=== PATIENT | male | born 1945 | race Caucasian/White ===

== ENCOUNTER 2024-03-21 10:52 | Inpatient (IN) | payer MEDICARE, OTHER ==
[2024-03-21 11:43] LABS: #Basophils 0.03 10x3/uL (0.0-0.2); %Basophils 0.6 % (0.0-1.0); %Eosinophils 1.2 % (0.0-10.0); %Lymphocytes 14.2 % (21.0-51.0); %Monocytes 8.9 % (0.0-10.0); %Neutrophils 74.7 % (42.0-75.0); Hematocrit 44.6 % (42.0-52.0); Hemoglobin 14.6 g/dL (14.0-18.0); Mean Corpuscular HGB CONC 32.7 g/dL (32.0-36.0); Mean Corpuscular Hemoglobin 32.2 pg (27.0-31.0); Mean Corpuscular Volume 98.5 fL (78.0-98.0); Mean Platelet Volume 10.3 fL (7.4-10.4); Platelet Count 203 10x3/uL (130-400); RBC Distribution Width 13.2 % (11.5-14.5); Red Blood Cell (RBC) Count 4.53 mill/uL (4.70-6.10)
[2024-03-21 12:00] LABS: ALT (SGPT) 20 U/L (8-55); AST (SGOT) 18 U/L (5-34); Albumin 3.7 g/dL (3.4-4.8); Alkaline Phosphatase 71 U/L (40-110); Anion Gap 13 mmol/L (10-20); BUN (Urea Nitrogen) 15 mg/dL (8.4-25.7); Bilirubin, Total 0.6 mg/dL (0.2-1.2); Calc. Creatinine Clearance 0 mL/min (70-130); Calcium 9.3 mg/dL (7.8-10.44); Carbon Dioxide 27 mmol/L (23-31); Chloride 107 mmol/L (98-107); Estimated GFR 91; Globulin 2.4 g/dL (2.4-3.5); Glucose 132 mg/dL (83-110); Potassium 4.1 mmol/L (3.5-5.1); Protein, Total 6.1 g/dL (5.8-8.1); Sodium 143 mmol/L (136-145)
[2024-03-21 12:06] LABS: Troponin I Less than 0.010 ng/mL (< 0.028)
[2024-03-21] MEDS ORDERED: Electrolyte Replacement Protocol 1 EACH IVPB SCH (13:26)
[2024-03-21 13:44] VITALS: BMI 28.6
[2024-03-21] MEDS ORDERED: Iopamidol-370 76% 500 ML MDV (1 ML CHARGE) ONE (14:14)
[2024-03-21] MEDS: Lactated Ringer's 1,000 ML IV SCH (14:50)
[2024-03-21] MEDS ORDERED: Acetaminophen 325 MG TAB ONE (15:11)
[2024-03-21] MEDS: Acetaminophen 325 MG TAB PO PRN (15:13)
[2024-03-21] MEDS ORDERED: Nitroglycerin 50 MG/250 ML BOT 250 ML ONE (15:49)
[2024-03-21] MEDS: Nitroglycerin 100MG/250ML BOT IV PRN (15:59)
[2024-03-21] MEDS ORDERED: Metoprolol Tartrate 25 MG TAB ONE (17:22)
[2024-03-21] MEDS: Finasteride 5 MG TAB PO SCH (20:46)
[2024-03-21] MEDS: Pantoprazole DR 40 MG TAB PO SCH (20:46)
[2024-03-21] MEDS: Atorvastatin Calcium 10 MG TAB PO SCH (20:46)
[2024-03-21] MEDS: Sodium Chloride 0.65% Nasal 44 ML BOT EA NARE PRN (22:37)
[2024-03-21] MEDS: Ketorolac Tromethamine 30 MG (1 mL) VIAL IVP SCH (22:37)
[2024-03-22 03:52] LABS: #Basophils 0.04 10x3/uL (0.0-0.2); %Basophils 0.7 % (0.0-1.0); %Eosinophils 2.2 % (0.0-10.0); %Lymphocytes 22.8 % (21.0-51.0); %Monocytes 9.6 % (0.0-10.0); %Neutrophils 64.4 % (42.0-75.0); Hematocrit 43.9 % (42.0-52.0); Hemoglobin 14.3 g/dL (14.0-18.0); Mean Corpuscular HGB CONC 32.6 g/dL (32.0-36.0); Mean Corpuscular Hemoglobin 31.5 pg (27.0-31.0); Mean Corpuscular Volume 96.7 fL (78.0-98.0); Mean Platelet Volume 10.4 fL (7.4-10.4); Platelet Count 205 10x3/uL (130-400); Red Blood Cell (RBC) Count 4.54 mill/uL (4.70-6.10)
[2024-03-22] MEDS: Ketorolac Tromethamine 30 MG (1 mL) VIAL IVP SCH (03:57)
[2024-03-22 04:13] LABS: Anion Gap 11 mmol/L (10-20); BUN (Urea Nitrogen) 17 mg/dL (8.4-25.7); Calc. Creatinine Clearance 100 mL/min (70-130); Calcium 9.2 mg/dL (7.8-10.44); Carbon Dioxide 23 mmol/L (23-31); Cardiac Risk 2.3 (Less than 4.5); Chloride 112 mmol/L (98-107); Cholesterol 118 mg/dl (< 200 Desired); Estimated GFR 92; Glucose 99 mg/dL (83-110); HDL Cholesterol 52 mg/dL (>60 Neg Risk); LDL Cholesterol, Calculated 45 mg/dL; Potassium 3.7 mmol/L (3.5-5.1); Sodium 142 mmol/L (136-145); Triglycerides 104 mg/dL (Less than 150)
[2024-03-22] MEDS: NIFEdipine XL 30 MG ER.TAB PO SCH (09:57)
[2024-03-22] MEDS: Morphine 2 MG/ML VIAL SLOW IVP PRN (11:20)
[2024-03-22] MEDS: Aspirin Chewable 81 MG TAB PO SCH (16:42)
[2024-03-22] MEDS: Clopidogrel Bisulfate 75 MG TAB PO SCH (16:42)
[2024-03-22] MEDS: hydrALAZINE 20 MG/ML VIAL SLOW IVP PRN (17:50)
[2024-03-22] MEDS: Metoclopramide HCl 10 MG (2 mL) VIAL IVP PRN (18:01)
[2024-03-22] MEDS: Calcium Carbonate 500 MG ChewTAB PO PRN (20:18)
[2024-03-22] MEDS ORDERED: hydrOXYzine 25 MG TAB PO PRN (22:23)
[2024-03-22] MEDS: Lorazepam 2 MG/ML VIAL SLOW IVP SCH (22:48)
[2024-03-22] MEDS: Nitroglycerin 0.4 MG TAB (25 Tab Bottle) SL PRN (22:55)
[2024-03-23 04:26] LABS: #Basophils Less than 0.03 10x3/uL (0.0-0.2); #Eosinphils Less than 0.03 10x3/uL (0.0-0.7); %Basophils 0.1 % (0.0-1.0); %Eosinophils 0.1 % (0.0-10.0); %Lymphocytes 9.6 % (21.0-51.0); %Monocytes 5.4 % (0.0-10.0); %Neutrophils 84.3 % (42.0-75.0); Hematocrit 47.3 % (42.0-52.0); Hemoglobin 15.5 g/dL (14.0-18.0); Mean Corpuscular HGB CONC 32.8 g/dL (32.0-36.0); Mean Corpuscular Hemoglobin 31.3 pg (27.0-31.0); Mean Corpuscular Volume 95.4 fL (78.0-98.0); Mean Platelet Volume 10.5 fL (7.4-10.4); Platelet Count 241 10x3/uL (130-400); RBC Distribution Width 13.2 % (11.5-14.5); Red Blood Cell (RBC) Count 4.96 mill/uL (4.70-6.10)
[2024-03-23 04:41] LABS: ALT (SGPT) 19 U/L (8-55); AST (SGOT) 16 U/L (5-34); Albumin 3.8 g/dL (3.4-4.8); Alkaline Phosphatase 70 U/L (40-110); Anion Gap 12 mmol/L (10-20); BUN (Urea Nitrogen) 12 mg/dL (8.4-25.7); Bilirubin, Total 0.6 mg/dL (0.2-1.2); Calc. Creatinine Clearance 101 mL/min (70-130); Calcium 9.8 mg/dL (7.8-10.44); Carbon Dioxide 21 mmol/L (23-31); Chloride 109 mmol/L (98-107); Estimated GFR 92; Globulin 2.7 g/dL (2.4-3.5); Glucose 117 mg/dL (83-110); Protein, Total 6.5 g/dL (5.8-8.1); Sodium 138 mmol/L (136-145)
[2024-03-23] MEDS ORDERED: Regadenoson 0.4 MG/5 ML SYRINGE ONE (09:46)
[2024-03-23] MEDS: NIFEdipine XL 60 MG ER.TAB PO SCH (11:40)
[2024-03-23 12:36] VITALS: BP 138/80; TEMP 97.2
== END 2024-03-23 13:12 | disposition left against medical advice (07) | DRG 305 ==
LOC: ERS 10:52 → ERHOLD 12:55 → OBSVTOIN 13:19 → 2SW 20:23
PROVIDERS: ADMIT Family Medicine; ATTEND Internal Medicine
DX: I16.1 Hypertensive emergency (principal); R07.89 Other chest pain; I10 Essential (primary) hypertension; K21.9 Gastro-esophageal reflux disease without esophagitis; I25.2 Old myocardial infarction; E78.00 Pure hypercholesterolemia, unspecified; I48.91 Unspecified atrial fibrillation; I25.10 Atherosclerotic heart disease of native coronary artery without angina pectoris; N40.0 Benign prostatic hyperplasia without lower urinary tract symptoms; I44.0 Atrioventricular block, first degree; Z88.8 Allergy status to other drugs, medicaments and biological substances; Z79.82 Long term (current) use of aspirin; Z79.899 Other long term (current) drug therapy; Z98.890 Other specified postprocedural states
CPT/HCPCS: 36415; 71045; 71275; 74174; 78452; 80048; 80053; 80061; 84443; 84484; 85025; 93005; 93017; 93306; 94760; A9502; J0360; J1885; J2060; J2272; J2765; J2785; J7120; Q9967